=== PATIENT | male | born 1945 | race Caucasian/White ===

== ENCOUNTER 2019-03-28 10:02 | Inpatient (IN) | payer OTHER, MEDICAID ==
[~2019-03-28] VITALS: Ht 165.1 cm; Wt 74.9 kg
[2019-03-28 10:47] LABS: BASOPHILS % 0.6 % (0.0-2.0); EOSINOPHILS % 2.7 % (0.0-5.0); HEMATOCRIT. 38.8 % (42.0-52.0); HEMOGLOBIN. 12.9 g/dL (14.0-18.0); LYMPHOCYTES % 19.8 % (20.0-50.0); MEAN CORPUSCULAR HEMOGLOBIN 29.8 pg (28.0-32.0); MEAN CORPUSCULAR VOLUME 89.7 fL (80.0-94.0); MEAN PLATELET VOLUME 7.2 fl (7.4-10.4); MONOCYTES % 6.8 % (2.0-8.0); NEUTROPHILS % 70.1 % (40.0-76.0); PLATELET 300 x1000/uL (130-400); RED BLOOD CELL COUNT 4.33 mill/uL (4.7-6.1); RED CELL DISTRIBUTION WIDTH 12.9 % (11.6-14.6)
[2019-03-28 10:51] LABS: CHLORIDE 105 mEq/L (98-107)
[2019-03-28 10:59] LABS: ETHANOL BLOOD < 10 mg/dL
[2019-03-28] MEDS ORDERED: SODIUM CHLORIDE 0.9% 1,000 ML IV ONE (11:15)
[2019-03-28 13:09] LABS: *AMPHETAMINES SCREEN URINE NEGATIVE (NEGATIVE); *BARBITURATES SCREEN URINE NEGATIVE (NEGATIVE); *BENZODIAZEPINES SCREEN URINE NEGATIVE (NEGATIVE); *COCAINE SCREEN URINE NEGATIVE (NEGATIVE); METHADONE URINE SCREEN NEGATIVE (NEGATIVE)
[2019-03-28 13:10] LABS: OPIATES URINE SCREEN NEGATIVE (NEGATIVE); PHENCYCLIDINE URINE SCREEN NEGATIVE (NEGATIVE)
[2019-03-28 13:11] LABS: CANNABINOID URINE SCREEN NEGATIVE (NEGATIVE)
[2019-03-28 14:44] LABS: CLARITY URINE CLEAR (CLEAR); COLOR URINE YELLOW (YELLOW); KETONES URINE NEGATIVE (NEGATIVE); LEUKOCYTE ESTERASE URINE NEGATIVE (NEGATIVE); NITRITE URINE NEGATIVE (NEGATIVE); OCCULT BLOOD URINE NEGATIVE (NEGATIVE); PH URINE 7.5 (4.5-8.0); PROTEIN URINE 2+ (NEGATIVE); SPECIFIC GRAVITY URINE 1.015 (1.005-1.030)
[2019-03-28] MEDS ORDERED: DEXTROSE 50% WATER 50ML SYRINGE IV PRN (16:45)
[2019-03-28] MEDS ORDERED: DIPHENHYDRAMINE 50MG/ML VIAL IV PRN (16:45)
[2019-03-28] MEDS ORDERED: GUAIFENESIN 200MG/10ML SUGAR FREE UDC PO PRN (16:45)
[2019-03-28] MEDS ORDERED: NA PHOS,M-B/NA PHOS,DI-BA ENEMA 118ML PR PRN (16:45)
[2019-03-28] MEDS ORDERED: DOCUSATE SODIUM 100MG CAPSULE PO PRN (16:45)
[2019-03-28] MEDS ORDERED: HYDROCODONE/ACETAMINOPHEN 5/325MG TABLET PO PRN (16:45)
[2019-03-28] MEDS ORDERED: ONDANSETRON HCL 4MG/2ML INJ IV PRN (16:45)
[2019-03-28] MEDS ORDERED: MAGNESIUM/ALUMINUM HYDROXIDE/SIMETHICONE 30ML UDC PO PRN (16:45)
[2019-03-28] MEDS ORDERED: ACETAMINOPHEN 650MG SUPP PR PRN (16:45)
[2019-03-28] MEDS ORDERED: LORAZEPAM 0.5MG TABLET PO PRN (16:45)
[2019-03-28] MEDS ORDERED: CLONIDINE 0.1MG TABLET PO PRN (16:45)
[2019-03-28] MEDS ORDERED: ACETAMINOPHEN 325MG TABLET PO PRN (16:45)
[2019-03-28] MEDS ORDERED: IPRATROPIUM/ALBUTEROL 0.5-3(2.5)MG/3ML NEB NEB PRN (16:45)
[2019-03-28 19:04] LABS: BG BASE EXCESS 0.9 mmol/L (-2.0-2.0); BG CARBOXYHEMOGLOBIN 0.3 % (0.5-1.5); BG DEOXYHEMOGLOBIN 5.7 % (0.0-5.0); BG FRACTION INSPIRED OXYGEN 21; BG HCO3 ACT 25.7 mmol/L (22.0-26.0); BG METHEMOGLOBIN 0.3 % (0.0-1.5); BG OXYGEN SATURATION 94.3 % (92.0-98.5); BG OXYHEMOGLOBIN 93.7 % (94.0-97.0); BG PH 7.405 (7.350-7.450); BG PO2 74.8 mmHg (75.0-100.0); BG SAMPLE SITE RIGHT BRACHIAL; BG TOTAL HEMOGLOBIN 13.2 g/dL (12.0-18.0); BG VENT MODE ROOM AIR
[2019-03-28] MEDS ORDERED: LEVOFLOXACIN 500MG PREMIX 100 ML IV NR (19:58)
[2019-03-28 20:09] LABS: PROTHROMBIN TIME 10.4 sec (9.6-11.0)
[2019-03-28 21:30] VITALS: BP 177/98
[2019-03-28 21:50] VITALS: BP 177/98
[2019-03-28] MEDS: INSULIN LISPRO 100 UNITS/ML SUBCUT SCH (22:53)
[2019-03-28] MEDS: BLOOD SUGAR DIAGNOSTIC STRIP TEST SCH (22:53)
[2019-03-29] VITALS: BP 168/89
[2019-03-29 00:02] LABS: CREATINE KINASE 48 IU/L (39-308)
[2019-03-29 00:03] LABS: CREATINE KINASE MB FRACTION < 1.0 ng/mL (0.5-3.6)
[2019-03-29 04:00] VITALS: BP 112/71
[2019-03-29 06:31] LABS: BASOPHILS % 0.5 % (0.0-2.0); CHLORIDE 108 mEq/L (98-107); EOSINOPHILS % 4.6 % (0.0-5.0); HEMATOCRIT. 33.9 % (42.0-52.0); HEMOGLOBIN. 11.6 g/dL (14.0-18.0); LYMPHOCYTES % 23.2 % (20.0-50.0); MEAN CORPUSCULAR HEMOGLOBIN 30.4 pg (28.0-32.0); MEAN CORPUSCULAR VOLUME 89.2 fL (80.0-94.0); MEAN PLATELET VOLUME 7.3 fl (7.4-10.4); MONOCYTES % 8.3 % (2.0-8.0); NEUTROPHILS % 63.4 % (40.0-76.0); PLATELET 280 x1000/uL (130-400); RED CELL DISTRIBUTION WIDTH 13.1 % (11.6-14.6)
[2019-03-29 06:49] LABS: CREATINE KINASE MB FRACTION < 1.0 ng/mL (0.5-3.6); LDL CHOLESTEROL 66 mg/dL (5-100); T4 FREE 0.94 ng/dL (0.76-1.46)
[2019-03-29 06:50] LABS: HDL CHOLESTEROL 32 mg/dL (40-59)
[2019-03-29 06:51] LABS: CREATINE KINASE 45 IU/L (39-308)
[2019-03-29] MEDS: INSULIN LISPRO 100 UNITS/ML SUBCUT SCH ×4 (07:28→21:31)
[2019-03-29] MEDS: BLOOD SUGAR DIAGNOSTIC STRIP TEST SCH ×4 (07:28→21:31)
[2019-03-29 08:00] VITALS: BP_SYST 115; BP_SYST 127; BP_DIAS 68; BP_DIAS 72
[2019-03-29] MEDS: ASPIRIN 81MG EC TABLET PO SCH (08:29)
[2019-03-29 12:00] VITALS: BP 121/66
[2019-03-29 16:00] VITALS: BP 113/57
[2019-03-29] MEDS: ENOXAPARIN 40MG/0.4ML SYR SUBCUT SCH (16:31)
[2019-03-29] MEDS ORDERED: LEVOFLOXACIN 500MG PREMIX 100 ML IV SCH ×2 (18:00→20:00)
[2019-03-29 20:00] VITALS: BP 149/85
[2019-03-30] VITALS: BP_SYST 122; BP_SYST 125; BP_SYST 139; BP_DIAS 68; BP_DIAS 72; BP_DIAS 78
[2019-03-30] MEDS ORDERED: ASPI-1393 PO (01:45)
[2019-03-30] MEDS ORDERED: ACET325C5 PO (01:45)
[2019-03-30] MEDS ORDERED: CLOP75TA4 PO (01:45)
[2019-03-30] MEDS ORDERED: ATOR80TA PO (01:45)
[2019-03-30] MEDS ORDERED: AMLO5TAB88 PO (01:45)
[2019-03-30] MEDS ORDERED: LANTUSUD SUBCUT (01:45)
[2019-03-30] MEDS ORDERED: METF-416 PO (01:45)
[2019-03-30 04:00] VITALS: BP 129/78
[2019-03-30 05:54] LABS: CHLORIDE 107 mEq/L (98-107)
[2019-03-30 06:01] LABS: HEMATOCRIT 33.5 % (42.0-52.0); HEMOGLOBIN 11.4 g/dL (14.0-18.0); MEAN CORPUSCULAR HEMOGLOBIN 30.2 pg (28.0-32.0); MEAN CORPUSCULAR VOLUME 88.9 fL (80.0-94.0); PLATELET 272 x1000/uL (130-400); RED BLOOD CELL COUNT 3.76 mill/uL (4.7-6.1); RED CELL DISTRIBUTION WIDTH 12.9 % (11.6-14.6)
[2019-03-30] MEDS: INSULIN LISPRO 100 UNITS/ML SUBCUT SCH ×2 (06:11→12:44)
[2019-03-30] MEDS: BLOOD SUGAR DIAGNOSTIC STRIP TEST SCH ×2 (06:11→12:39)
[2019-03-30 08:00] VITALS: BP 152/85
[2019-03-30] MEDS: ASPIRIN 81MG EC TABLET PO SCH (08:44)
[2019-03-30 12:00] VITALS: BP 140/75
[2019-03-30] MEDS: ENOXAPARIN 40MG/0.4ML SYR SUBCUT SCH (14:00)
[2019-03-30 14:05] VITALS: BP 140/75
== END 2019-03-30 15:17 | DRG 74 ==
LOC: ER 10:08 → 8WST 13:41 → EDBEDREQTM 13:44 → EDBEDREQ 13:44 → CANRESERV 15:47 → ENRESERV 15:47 → SUPCPDRO 16:39 → CANRESERV 20:29 → ENRESERV 20:29
PROVIDERS: ADMIT Internal Medicine; ATTEND Internal Medicine
DX: G90.8 Other disorders of autonomic nervous system (principal); N39.0 Urinary tract infection, site not specified; R07.89 Other chest pain; D64.9 Anemia, unspecified; D72.829 Elevated white blood cell count, unspecified; E78.5 Hyperlipidemia, unspecified; I10 Essential (primary) hypertension; K59.00 Constipation, unspecified; M54.5 Low back pain; M47.9 Spondylosis, unspecified; M48.00 Spinal stenosis, site unspecified; M46.90 Unspecified inflammatory spondylopathy, site unspecified; E03.9 Hypothyroidism, unspecified; N40.0 Benign prostatic hyperplasia without lower urinary tract symptoms; E11.9 Type 2 diabetes mellitus without complications; W18.39XA Other fall on same level, initial encounter; Y93.89 Activity, other specified; Y92.098 Other place in other non-institutional residence as the place of occurrence of the external cause; Y99.8 Other external cause status; Z86.73 Personal history of transient ischemic attack (TIA), and cerebral infarction without residual deficits
CPT/HCPCS: 36415; 36600; 71045; 72131; 72148; 74176; 80048; 80061; 80305; 80320; 81003; 82375; 82550; 82553; 82805; 82962; 83036; 83880; 84153; 84439; 84443; 84481; 84484; 85027; 93005; 93306; 93880; 93970; 96361; 96365; 97110; 97116; 97162; 99285; J1650; J1815; J1956; J7030; A4315; G0103; G0480